=== PATIENT | male | born 1980 | race African-American/Black ===

== ENCOUNTER 2017-06-22 16:02 | Outpatient (CLI) | payer OTHER | END 2017-06-22 17:00 | disposition home or self-care (01) | LOC: DCC 16:02 | DX: K43.2 Incisional hernia without obstruction or gangrene (principal); I10 Essential (primary) hypertension; G47.30 Sleep apnea, unspecified; E66.01 Morbid (severe) obesity due to excess calories | CPT/HCPCS: G0463 ==